=== PATIENT | female | born 1960 | race Caucasian/White ===

== ENCOUNTER → 2023-12-02 17:13 | Outpatient (REF) | payer OTHER, SELFPAY | LOC: HWRAD 17:13 | PROVIDERS: ATTENDING PHYSICIAN Physician Assistant Medical | DX: R07.89 Other chest pain (principal) | CPT/HCPCS: 71046 ==

== ENCOUNTER → 2023-12-08 15:18 | Outpatient (REF) | payer OTHER, SELFPAY | LOC: HWWDC 15:18 | PROVIDERS: ATTENDING PHYSICIAN Physician Assistant Medical | DX: Z12.31 Encounter for screening mammogram for malignant neoplasm of breast (principal) | CPT/HCPCS: 77063; 77067 ==

== ENCOUNTER 2023-12-18 07:51 | Inpatient (IN) | payer OTHER, SELFPAY ==
[2023-12-15 19:07] VITALS: BP 106/64
[2023-12-15 19:23] LABS: % Basophils 0.3 % (0-2); % Eosinophils 0.3 % (0-6); % Immature Granulocytes 0.5 % (0-0.5); % Lymphocytes 12.7 % (20.5-51.1); % Monocytes 7.3 % (1.7-9.3); % Neutrophils 78.9 % (42.2-75.2); Absolute Immature Granulocytes 0.1 10^3/uL (0-0.05); Absolute Lymphocytes 1.6 10^3/uL (1.2-3.4); Absolute Monocytes 0.9 10^3/uL (0.1-0.6); Absolute Neutrophils 9.8 10^3/uL (1.4-6.5); Hematocrit 39.8 % (37.0-47.0); Hemoglobin 13.3 g/dL (12.0-16.0); Mean Corp Hgb Conc. 33.4 g/dL (33.0-37.0); Mean Corpuscular Hgb 28.4 pg (27.0-31.0); Mean Corpuscular Volume 84.9 fL (81.0-99.0); Nucleated Red Blood Cells % 0 %; Platelet Count 427 10^3/uL (130-400); Red Blood Cell Count 4.69 10^6/uL (4.20-5.40); Red Cell Dist. Width 12.2 % (11.5-14.5); White Blood Cell Count 12.4 10^3/uL (4.8-10.8)
[2023-12-15 19:40] LABS: ALT (SGPT) 21 U/L (0-35); AST (SGOT) 22 U/L (14-36); Albumin 4.3 g/dl (3.5-5.0); Alkaline Phosphatase 94 U/L (38-126); Blood Urea Nitrogen 19 mg/dl (7-17); Calcium 9.5 mg/dl (8.4-10.2); Carbon Dioxide 24 mmol/L (22-30); Glucose 164 mg/dl (70-99); Lipase 68 U/L (23-300); Total Bilirubin 0.9 mg/dl (0.2-1.3); Total Protein 6.9 g/dl (6.3-8.2); eGFR > 60.00
[2023-12-15 19:49] LABS: Chloride 104 mmol/L (98-107); Potassium 3.8 mmol/L (3.5-5.1); Sodium 138 mmol/L (135-145)
--- NOTE | 2023-12-15 21:58 | ED.GENMED ---
History of Present Illness
General
Chief Complaint: Abdominal Symptoms
Source: patient
Time Seen by Provider: 12/15/23 21:43
History of Present Illness
History of Present Illness:
63yoF with a history of hyperlipidemia and GERD presenting with her for evaluation of left flank pain. She initially was seen by her PCP 10 days for concern for high blood pressure and chest pain. An EKG and CXR were done which were
reportedly normal. She was prescribed anxiety medications for her symptoms. She went out to eat with her friends 1 week ago and she felt like her food 'did not digest right.' She was at a [facility] of [facility] 4 days ago and started having L flank pain
afterwards. She was seen by her PCP 3 days ago again and she was prescribed a Z-pack for a possible infection. She continues to have severe L flank pain which she rates as a 10/10 in severity. She also endorses fevers up to 100.7. She denies any
vomiting, diarrhea, dysuria, rashes, cough.
Past History
Past History
ED Past Medical History: Other (Paaget's disease, melanoma)
Social History
Tobacco: Non-smoker
Phy Exam
Physical Exam
Physical Exam:
Patient appears uncomfortable
General Physical Exam
General Presentation: moderate distress
General age: appears stated age
General Skin: warm and dry
General Habitus: normal
General Mental: alert
General Hydration: appears well hydrated
Cardiovascular Exam
Cardiovascular Exam: regular rate/rhythm and no murmur
Pulmonary Exam
Pulmonary Exam: lungs clear, no respiratory distress, no crackles and no wheezing
Gastrointestinal Exam
Gastrointestinal Exam: non tender, soft, non distended and no cva tenderness
Musculoskeletal Exam
Musculoskeletal Exam: other (No rash or skin changes to L flank. No reproducible tenderness. )
Course
Orders/Labs/Results
Orders:
Orders
12/15/23 19:17
CMP [Comprehensive Metabolic Panel] Urgent
Complete Blood Count/With Diff Urgent
Lipase Urgent
12/15/23 21:56
Chest/Abd/Pelvis w Contrast CT [CT Chest/abd/pel W Iv Cont] Urgent
Comment:
Reason For Exam: L flank pain, SOB, fever
0.9% Sodium Chloride 1000 ml [Nss] 1,000 ml IV BOLUS
HYDROmorphone [Dilaudid] 0.5 mg IV NOW STA
12/15/23 21:57
Electrocardiogram (*1) Urgent
Reason for Study: Chest Pain
EKG- Treatment ONCE
12/15/23 22:24
Troponin I Urgent
Urinalysis Reflex To Culture Urgent
Date Specimen was Collected: 12/15/23
Time Specimen was Collected: 22:14
Urine Microscopic Reflex Cult Urgent
Urine Culture Urgent
JERI Source: U
Specimen Description:
Date Specimen was Collected: 12/15/23
Time Specimen was Collected: 22:14
12/15/23 22:27
Ondansetron Injectable [Zofran] 4 mg .ROUTE .STK-MED ONE
12/15/23 22:28
Ondansetron Injectable [Zofran] 4 mg IV NOW STA
12/16/23 00:42
HYDROmorphone [Dilaudid] 0.5 mg IV NOW STA
Abnormal Lab Results
12/15/23 12/15/23
19:17 22:24
WBC 12.4 H 10^3/uL
(4.8-10.8)
Plt Count 427 H 10^3/uL
(130-400)
Abs Immat Gran (auto) 0.1 H 10^3/uL
(0-0.05)
Absolute Neuts (auto) 9.8 H 10^3/uL
(1.4-6.5)
Absolute Monos (auto) 0.9 H 10^3/uL
(0.1-0.6)
Neutrophils % 78.9 H %
(42.2-75.2)
Lymphocytes % 12.7 L %
(20.5-51.1)
BUN 19 H mg/dl
(7-17)
Glucose 164 H mg/dl
(70-99)
Urine Ketones Trace A
(Negative)
Ur Occult Blood Reflex 2+ A
(Negative)
Urine Bilirubin 1+ A
(Negative)
Urine RBC 3-6 A /HPF
(0-2)
Urine Bacteria (Reflex) Moderate A
(Negative)
12/15/23 19:17
12/15/23 19:17
Vital Signs
Initial and Last Documented VS:
Initial Vital Signs
Temp Pulse Resp BP Pulse Ox
99.2 F 86 22 106/64 100
12/15/23 19:07 12/15/23 19:07 12/15/23 19:07 12/15/23 19:07 12/15/23 19:07
Last Documented Vital Signs
Temp Pulse Resp BP Pulse Ox
99.2 F 109 18 118/63 93
12/15/23 19:07 12/15/23 22:33 12/15/23 22:33 12/15/23 22:33 12/15/23 22:33
MDM/Problems Addressed
Differential Diagnosis Includes:
63yoF here with L flank pain x 4 days. Also having low grade fevers up to 100.7 and digestive issues. Currently on a Zpack prescribed by her PCP. She is afebrile and hemodynamically stable. She appears uncomfortable on exam but is non-toxic. No
reproducible tenderness to L flank or skin changes. Differential diagnosis includes but is not limited to: musculoskeletal, kidney stone, pneumonia, pneumothorax, ACS
Initial ED plan: Check cardiac labs, UA, EKG, and CT CAP. IV Dilaudid and fluid bolus for symptoms.
*EKG
Interpreted by ED Provider?: Yes
EKG Intrepretation Date: 12/16/23
Heart Rate: 105
Rate: tachycardiac
Rhythm: sinus
Buckholts: normal axis
Interval: normal interval
QRS Pattern: normal QRS
Ischemia: no ischemia
*Critical Care Note
Total Time (30-74mins, 75-104mins- exclusive of procedures): Not Applicable
Update Note
Update Note:
Labs reveal a WBC of 12.4. Moderate bacteria on UA although she denies any urinary symptoms. CT shows a small to moderate pericardial effusion. No ischemic changes on EKG and troponin is normal. Patient requiring multiple doses of IV Dilaudid for
pain control. She was admitted for further management.
ED Attending Note
-
Portions of this chart may have been created with voice recognition software.� Occasional wrong word or��sound alike� substitutions may have occurred due to the inherent limitations of voice recognition software.
Discharge Plan
Departure
Patient Disposition: Admit
Date of Disposition: 12/16/23
Time of Disposition: 00:46
Presentation/result/management discussed w/ accepting MD/DO: Hospitalist
Discharge Problem:
Pericardial effusion, Left flank pain
Prescriptions:
No Action
meloxicam 15 MG tablet
15 mg PO DAILY PRN (Reason: headache)
tramadol 50 MG tablet
50 mg PO DAILY PRN (Reason: pain)
zoledronic acid 4 MG/5 ML solution
4 mg IV .YEARLY
L.acidoph, paracasei,B. lactis 1 EACH capsule
1 ea PO DAILY
meclizine 25 MG tablet
25 mg PO TID PRN (Reason: nausea or vertigo) Qty: 20 0RF
amoxicillin-pot clavulanate 875-125 mg tablet
1 tab PO BID Qty: 14 0RF
Referrals:
Verito Brizuela PA [Family Provider] -
Interventions
Interventions:
*Risk Screen - Suicide Last Done: 12/15/23 19:07
*General Assessment Last Done: 12/15/23 22:32
*Neglect/Abuse Screening Last Done: 12/15/23 19:07
ED- Fall Risk Assessment Last Done: 12/15/23 22:34
*ED COVID-19 Vaccine History Last Done: 12/15/23 22:32
CG-Lbnzkl-Abccddygkk Assessment Last Done: 12/15/23 22:34
Discharge Date and Time
Print Language: HUNGARIAN
[2023-12-15] MEDS: ZOFRAN 4 MG IV (22:28)
[2023-12-15] MEDS: DILAUDID 0.5 MG IV (22:29)
[2023-12-15] MEDS: NSS 1000 IV (22:29)
[2023-12-15 22:31] VITALS: BP 118/63; BMI 30.7
[2023-12-15 22:32] LABS: Urine Albumin Trace (Neg - Trace); Urine Bilirubin 1+ (Negative); Urine Character Clear (Clear); Urine Color Yellow; Urine Glucose Negative (Negative); Urine Ketone Trace (Negative); Urine Leukocyte Negative (Negative); Urine Nitrite Negative (Negative); Urine Occult Blood 2+ (Negative); Urine Specific Gravity 1.025 (<1.030); Urine Urobilinogen Negative (Neg - 1+)
[2023-12-15 22:33] VITALS: BP 118/63
[2023-12-15 22:49] LABS: Urine Mucus Moderate
[2023-12-15 22:50] LABS: Urine Bacteria Moderate (Negative); Urine White Cell 0-2 /HPF (0-5)
[2023-12-15 22:57] LABS: Troponin I < 0.012 ng/ml
[2023-12-16] MEDS: DILAUDID 0.5 MG IV (01:05)
[2023-12-16] MEDS: ZOFRAN 4 MG IV (01:10)
--- NOTE | 2023-12-16 01:57 | HPS.HSE ---
Family Physician
-
Family Physician: Verito Brizuela
Chief Complaint
-
Rt flank pain
History of Present Illness
63F HX GERD, HLD came to ER with for evaluation of left flank pain amd multple compalints .
- 10 days ago , seen by PCP for concern for high blood pressure and chest pain.
Reports unremarkable EKG and CXR
Then DC'd on anxiety medications
- 7 days ago she went out and eat dinner with friend and she felt like her food 'did not digest right.'
- 4 days ago and started having L flank pain afterwards.
- 3 days ago, seen by PCP again prescribed a Z-pack for a possible infection.
Reports she continues to have severe L flank pain
- rates as a 10/10 in severity.
- report s fevers up to 100.7
- vomiting, diarrhea, dysuria, rashes, cough.
Medical History
Past Medical History
Past Medical History: Reports Other (Paaget's disease, melanoma))
Past Surgical History: Reports None
Social History
Tobacco: Non-smoker
Family History
Family History: Not pertinent
Allergies / Home Medications
Allergies reflects when Allergies were last updated in [facility].
Home Medications with original date entered in [facility]
Allergy/Medication List:
Allergies
Allergy/AdvReac Type Severity Reaction Status Date / Time
No Known Allergies Allergy Verified 12/15/23 19:11
Home Medications
L.acidoph, paracasei,B. lactis 10 billion cell capsule 1 ea PO DAILY 02/19/19
meclizine 25 mg tablet 25 mg PO TID PRN nausea or vertigo #20 tabs 02/19/19
meloxicam 15 mg tablet 15 mg PO DAILY PRN headache 02/19/19
tramadol 50 mg tablet 50 mg PO DAILY PRN pain 02/19/19
zoledronic acid 4 mg/5 mL intravenous solution 4 mg IV .YEARLY 02/19/19
amoxicillin 875 mg-potassium clavulanate 125 mg tablet 1 tab PO BID #14 tabs 03/01/23
Review of Systems
-
Constitutional: Reports No Symptoms
EENT: Reports No Symptoms
Respiratory: Reports No Symptoms
Cardiac: Reports No Symptoms
Abdomen/GI: Reports Abdominal Pain
: Reports No Symptoms
Musculoskeletal: Reports No Symptoms
Skin: Reports No Symptoms
Neurological: Reports No Symptoms
Endocrine: Reports No Symptoms
Hematologic/Lymphatic: Reports No Symptoms
Psych: Reports No Symptoms
Physical Exam
Vital Signs
Vital Signs
Temp Pulse Resp BP Pulse Ox
99.2 F 109 18 118/63 93
12/15/23 19:07 12/15/23 22:33 12/15/23 22:33 12/15/23 22:33 12/15/23 22:33
Physical Exam
General: Well Developed, Well Nourished and No Apparent Distress
HEENT: NormoCephalic, Moist mucous membranes and Atraumatic
Respiratory: Clear
Cardiac: S1/S2 and Regular Rhythm; No Murmur or Rub
GI: Soft, Non Tender, Non Distended and Normal Bowel Sounds; No Organomegaly
Rectal: Deferred by Provider
Musculoskeletal: No Clubbing, No Cyanosis and No Edema
Skin: No Rash
Neuro: Nonfocal/grossly intact
Laboratory Results
-
12/15/23 19:17
12/15/23 19:17
Laboratory Results
Total Bilirubin 0.9 mg/dl (0.2-1.3) 12/15/23 19:17
AST 22 U/L (14-36) 12/15/23 19:17
ALT 21 U/L (0-35) 12/15/23 19:17
Alkaline Phosphatase 94 U/L (38-126) 12/15/23 19:17
Troponin I < 0.012 ng/ml 12/15/23 22:24
Lipase 68 U/L (23-300) 12/15/23 19:17
Data Reviewed
-
Diagnostic Radiology: Discussed with Physician
Lab Data: Labs Reviewed by me
Impression/Plan
-
Reviewed VS: T 99.2 HR 85- 110 BP 105/65 - 118/63
Data
WCC 12.4
PLt 427
Unremarkable CMP
NEG TPNI
UA with moderate bacteria - she denies any urinary symptoms.
NO PRIOR hospitalist admission:
ASSESSMENT & PLAN
Pending Rx reconciliation
Intermittent severe L flank pain of unclear origin
- report inadequate pain control with IV Dilaudid 5.5 2 mg
- report s fevers up to 100.7
- No vomiting, diarrhea
- hemodynamically stable.
- WBC 12.4.
- UA with moderate bacteria but she denies any urinary symptoms.
- CT CAP shows a small to moderate pericardial effusion.
- had IV Dilaudid 0.5 x 2
- hold off further IV Narcotics
- IVF
- Observe
DVT Px: SQH
Code: Full code
Obs MS
[2023-12-16 02:00] VITALS: BP 110/60
[2023-12-16 03:37] VITALS: BMI 31.8
[2023-12-16] MEDS: NSS 1000 IV ×3 (03:40→23:34)
[2023-12-16] MEDS: TYLENOL 650 MG PO (03:42)
[2023-12-16 03:43] VITALS: BP 137/88
[2023-12-16 07:39] VITALS: BP 117/84
[2023-12-16 08:00] LABS: % Basophils 0.1 % (0-2); % Immature Granulocytes 0.6 % (0-0.5); % Lymphocytes 4.7 % (20.5-51.1); % Monocytes 7.9 % (1.7-9.3); % Neutrophils 86.7 % (42.2-75.2); Absolute Immature Granulocytes 0.1 10^3/uL (0-0.05); Absolute Lymphocytes 0.9 10^3/uL (1.2-3.4); Absolute Monocytes 1.5 10^3/uL (0.1-0.6); Absolute Neutrophils 16.5 10^3/uL (1.4-6.5); Hematocrit 37.9 % (37.0-47.0); Hemoglobin 12.7 g/dL (12.0-16.0); Mean Corp Hgb Conc. 33.5 g/dL (33.0-37.0); Mean Corpuscular Hgb 29.1 pg (27.0-31.0); Mean Corpuscular Volume 86.7 fL (81.0-99.0); Mean Platelet Volume 9.3 fL (7.4-10.4); Nucleated Red Blood Cells % 0 %; Platelet Count 411 10^3/uL (130-400); Red Blood Cell Count 4.37 10^6/uL (4.20-5.40); Red Cell Dist. Width 12.5 % (11.5-14.5)
[2023-12-16] MEDS: HEPARIN 5000 UNITS SC ×2 (08:01→20:30)
[2023-12-16 08:25] LABS: Blood Urea Nitrogen 21 mg/dl (7-17); Carbon Dioxide 18 mmol/L (22-30); Chloride 106 mmol/L (98-107); Estimated Creatinine Clearance 107 ml/min; Glucose 183 mg/dl (70-99); Potassium 4.5 mmol/L (3.5-5.1); Sodium 137 mmol/L (135-145); eGFR > 60.00
[2023-12-16 13:48] LABS: Procalcitonin 0.33 ng/ml (0.0-0.25)
[2023-12-16] MEDS: STERILE WATER FOR INJECTION 10 ML IV (14:11)
[2023-12-16] MEDS: ROCEPHIN 1000 MG IV (14:11)
[2023-12-16 15:35] VITALS: BP 128/88
--- NOTE | 2023-12-16 16:25 | W.PN.HOSP.TC ---
Today's Communication/Plan
-
see plan
Assessment / Plan
Assessment / Plan
Impression:
Presentation with persistent left lower back/flank pain
Left lower lobe pneumonia with pleurisy.
Leukocytosis due to the above.
Mild normal gap metabolic acidosis suspect secondary to dehydration
Plan:
Presents with persistent left lower back/flank pain 4 days.
She has no respiratory symptoms other than severe pain on inspiration in the left flank.
Urinalysis not indicative of infection or acute process. Pending urine culture
Imaging with CT scan of the chest abdomen pelvis relevant with left lower lobe process/consolidation likely pneumonia.
Mildly elevated procalcitonin level
WBC increased to 19 K.
She has been treated with oral antibiotics prior to presentation with no significant improvement of pain
Start IV antibiotics ceftriaxone/doxycycline
Incentive spirometry
Analgesia.
Mucolytic's.
Monitor closely, may require reimaging including chest ultrasound to monitor for accumulating pleural effusion/empyema.
Provide IV fluids monitoring oral intake
Follow BMP.
Anticipated Discharge: 24 - 48 hours
Subjective/Interval History
-
Date of Service: December 16, 2023
Objective Data
-
Labs:
Laboratory Results
12/16/23
07:34
WBC 19.0 H
Hgb 12.7
Hct 37.9
Plt Count 411 H
Sodium 137
Potassium 4.5
Chloride 106
Carbon Dioxide 18 L
BUN 21 H
Creatinine 0.6
Glucose 183 H
Calcium 9.0
Vital Signs:
Vital Signs
Temp Pulse Resp BP Pulse Ox
97.9 F 109 19 128/88 96
12/16/23 15:35 12/16/23 15:35 12/16/23 15:35 12/16/23 15:35 12/16/23 15:35
Physical Exam
-
General: Well Developed and No Apparent Distress
HEENT: Normocephalic, Atraumatic and Moist Mucous Membranes
Respiratory: Clear to Auscultation
Cardiac: Regular Rhythm and S1/S2; Negative Murmur, Rub or Gallop
GI: Soft, Nontender, Nondistended and Normal Bowel Sounds; Negative Organomegaly
Rectal: Deferred by Provider
Musculoskeletal: No Clubbing, No Cyanosis and No Edema
Skin: Negative Rash
Neuro: Nonfocal/Grossly Intact
[2023-12-16] MEDS: VIBRAMYCIN 100 MG PO (20:31)
[2023-12-16] MEDS: MUCINEX 600 MG PO (20:31)
[2023-12-16 23:09] VITALS: BP 109/81
[2023-12-17] MEDS: TYLENOL 650 MG PO ×3 (00:35→19:58)
[2023-12-17 07:04] LABS: % Basophils 0.2 % (0-2); % Immature Granulocytes 0.7 % (0-0.5); % Lymphocytes 13.9 % (20.5-51.1); % Monocytes 9.7 % (1.7-9.3); % Neutrophils 75.5 % (42.2-75.2); Absolute Immature Granulocytes 0.1 10^3/uL (0-0.05); Absolute Lymphocytes 1.7 10^3/uL (1.2-3.4); Absolute Monocytes 1.2 10^3/uL (0.1-0.6); Absolute Neutrophils 9.1 10^3/uL (1.4-6.5); Hematocrit 34.5 % (37.0-47.0); Hemoglobin 11.2 g/dL (12.0-16.0); Mean Corp Hgb Conc. 32.5 g/dL (33.0-37.0); Mean Corpuscular Hgb 28.2 pg (27.0-31.0); Mean Corpuscular Volume 86.9 fL (81.0-99.0); Mean Platelet Volume 9.6 fL (7.4-10.4); Nucleated Red Blood Cells % 0 %; Platelet Count 349 10^3/uL (130-400); Red Blood Cell Count 3.97 10^6/uL (4.20-5.40); Red Cell Dist. Width 12.7 % (11.5-14.5); White Blood Cell Count 12.1 10^3/uL (4.8-10.8)
[2023-12-17 07:36] VITALS: BP 127/78
[2023-12-17] MEDS: HEPARIN 5000 UNITS SC ×2 (07:50→19:46)
[2023-12-17] MEDS: VIBRAMYCIN 100 MG PO ×2 (07:51→19:46)
[2023-12-17] MEDS: MUCINEX 600 MG PO ×2 (07:51→19:46)
[2023-12-17 08:25] LABS: Blood Urea Nitrogen 10 mg/dl (7-17); Carbon Dioxide 26 mmol/L (22-30); Chloride 107 mmol/L (98-107); Estimated Creatinine Clearance 91 ml/min; Glucose 131 mg/dl (70-99); Potassium 3.9 mmol/L (3.5-5.1); Sodium 140 mmol/L (135-145); eGFR > 60.00
[2023-12-17] MEDS: NSS 1000 IV (09:14)
--- NOTE | 2023-12-17 09:16 | PTOTSP ---
Speech Language Pathology
Pt seen for clinical bedside swallow evaluation. Pt reported she follows with GI. She was noting reflux and globus sensation in esophagus and regurgitation, but reported this has been well controlled for the past year. Last endoscopy in August of
this year with the following findings: esophagitis with concern for EOE, Schatzki's ring, small hiatal hernia. Pt denied any oropharyngeal dysphagia.
P.O. trials of puree, regular solids, and thin liquids provided. Adequate mastication, bolus formation, and A-P transit noted with no oral residue. No overt signs of aspiration.
Recommend:
(1) Regular solids/thin liquids
(2) General aspiration precautions
(3) Meds as tolerated
(4) LABOR STANDARDS DIRECTOR to sign off. Please reconsult as indicated.
[2023-12-17] MEDS: ROCEPHIN 1000 MG IV (13:03)
[2023-12-17] MEDS: STERILE WATER FOR INJECTION 10 ML IV (13:03)
[2023-12-17 16:08] VITALS: BP 139/81
--- NOTE | 2023-12-17 17:50 | W.PN.HOSP.TC ---
Today's Communication/Plan
-
Antibiotics, incentive spirometry
Pain control
Assessment / Plan
Assessment / Plan
Impression:
Presentation with persistent left lower back/flank pain
Left lower lobe pneumonia with pleurisy.
Leukocytosis due to the above.
Mild normal gap metabolic acidosis suspect secondary to dehydration
Plan:
Presents with persistent left lower back/flank pain 4 days.
She has no respiratory symptoms other than severe pain on inspiration in the left flank.
Urinalysis not indicative of infection or acute process. Pending urine culture
Imaging with CT scan of the chest abdomen pelvis relevant with left lower lobe process/consolidation likely pneumonia.
Mildly elevated procalcitonin level
Initiated on antibiotics: Ceftriaxone/doxycycline to cover community-acquired pathogens.
Overall improved with improved cough and left flank/lower back pain.
WBC trending down 19-12
Blood cultures negative to date
Incentive spirometry
Analgesia.
Mucolytic's.
Monitor closely, may require reimaging including chest ultrasound to monitor for accumulating pleural effusion/empyema.
Provide IV fluids monitoring oral intake
Follow BMP.
Anticipated Discharge: 24 - 48 hours
Subjective/Interval History
-
Date of Service: December 17, 2023
Objective Data
-
Labs:
Laboratory Results
12/17/23
06:12
WBC 12.1 H
Hgb 11.2 L
Hct 34.5 L
Plt Count 349
Sodium 140
Potassium 3.9
Chloride 107
Carbon Dioxide 26
BUN 10
Creatinine 0.7
Glucose 131 H
Calcium 9.0
Vital Signs:
Vital Signs
Temp Pulse Resp BP Pulse Ox
99.0 F 106 18 139/81 94
12/17/23 16:08 12/17/23 16:08 12/17/23 16:08 12/17/23 16:08 12/17/23 16:08
I&O
12/16/23 12/17/23 12/18/23
06:59 06:59 06:59
Intake Total 840 / 840 841 / 841
Balance 840 / 840 841 / 841
Physical Exam
-
General: Well Developed and No Apparent Distress
HEENT: Normocephalic, Atraumatic and Moist Mucous Membranes
Respiratory: Clear to Auscultation
Cardiac: Regular Rhythm and S1/S2; Negative Murmur, Rub or Gallop
GI: Soft, Nontender, Nondistended and Normal Bowel Sounds; Negative Organomegaly
Rectal: Deferred by Provider
Musculoskeletal: No Clubbing, No Cyanosis and No Edema
Skin: Negative Rash
Neuro: Nonfocal/Grossly Intact
[2023-12-17 23:00] VITALS: BP 116/70
[2023-12-18] MEDS: TYLENOL 650 MG PO ×3 (02:03→21:10)
[2023-12-18] MEDS: HEPARIN SC ×4 (08:02→20:33)
[2023-12-18] MEDS: VIBRAMYCIN 100 MG PO ×2 (08:02→20:30)
[2023-12-18] MEDS: MUCINEX 600 MG PO ×2 (08:02→20:30)
[2023-12-18 08:04] VITALS: BP 131/71
--- NOTE | 2023-12-18 12:43 | CM ---
Patient has switched to inpatient, IMM given. rn field case manager reviewed patient's chart and met with patient and patient lives with spouse in a 2 story home, patient is independent with adl's and ambulation, no dme, patient drives.
Pharmacy; [facility]
PCP: Dr. Verito Brizuela
Plan; Home no needs
[2023-12-18] MEDS: STERILE WATER FOR INJECTION 10 ML IV (13:10)
[2023-12-18] MEDS: ROCEPHIN 1000 MG IV (13:10)
[2023-12-18 15:00] VITALS: BP 130/75
[2023-12-18 15:55] LABS: % Basophils 0.5 % (0-2); % Eosinophils 0.2 % (0-6); % Immature Granulocytes 0.6 % (0-0.5); % Lymphocytes 14.1 % (20.5-51.1); % Monocytes 5.4 % (1.7-9.3); % Neutrophils 79.2 % (42.2-75.2); Absolute Basophils 0.1 10^3/uL (0-0.2); Absolute Immature Granulocytes 0.1 10^3/uL (0-0.05); Absolute Lymphocytes 1.3 10^3/uL (1.2-3.4); Absolute Monocytes 0.5 10^3/uL (0.1-0.6); Absolute Neutrophils 7.4 10^3/uL (1.4-6.5); Hematocrit 33.6 % (37.0-47.0); Hemoglobin 11.1 g/dL (12.0-16.0); Mean Corpuscular Hgb 28.2 pg (27.0-31.0); Mean Corpuscular Volume 85.5 fL (81.0-99.0); Nucleated Red Blood Cells % 0 %; Platelet Count 356 10^3/uL (130-400); Red Blood Cell Count 3.93 10^6/uL (4.20-5.40); Red Cell Dist. Width 12.7 % (11.5-14.5); White Blood Cell Count 9.4 10^3/uL (4.8-10.8)
--- NOTE | 2023-12-18 19:05 | W.PN.HOSP.TC ---
Today's Communication/Plan
-
Significant improvement with mild cough, improvement of left pleuritic chest pain
Continue IV antibiotics for another 24 hours
Continue incentive spirometer
Follow WBC.
Assessment / Plan
Assessment / Plan
Impression:
Presentation with persistent left lower back/flank pain
Left lower lobe pneumonia with pleurisy.
Leukocytosis due to the above.
Mild normal gap metabolic acidosis suspect secondary to dehydration
Plan:
Presents with persistent left lower back/flank pain 4 days.
She has no respiratory symptoms other than severe pain on inspiration in the left flank.
Urinalysis not indicative of infection or acute process. Pending urine culture
Imaging with CT scan of the chest abdomen pelvis relevant with left lower lobe process/consolidation likely pneumonia.
Mildly elevated procalcitonin level
Initiated on antibiotics: Ceftriaxone/doxycycline to cover community-acquired pathogens.
Overall improved with improved cough and left flank/lower back pain.
WBC trending down 19-12
Blood cultures negative to date
Incentive spirometry
Analgesia.
Mucolytic's.
Monitor closely, may require reimaging including chest ultrasound to monitor for accumulating pleural effusion/empyema.
Provide IV fluids monitoring oral intake
Follow BMP.
Anticipated Discharge: 24 - 48 hours
Subjective/Interval History
-
Date of Service: December 18, 2023
Objective Data
-
Labs:
Laboratory Results
12/18/23
15:43
WBC 9.4
Hgb 11.1 L
Hct 33.6 L
Plt Count 356
Vital Signs:
Vital Signs
Temp Pulse Resp BP Pulse Ox
98.2 F 95 18 130/75 95
12/18/23 15:00 12/18/23 15:00 12/18/23 15:00 12/18/23 15:00 12/18/23 15:00
I&O
12/17/23 12/18/23 12/19/23
06:59 06:59 06:59
Intake Total 840 / 840 1441 / 1441 420 / 420
Balance 840 / 840 1441 / 1441 420 / 420
Physical Exam
-
General: Well Developed and No Apparent Distress
HEENT: Normocephalic, Atraumatic and Moist Mucous Membranes
Respiratory: Clear to Auscultation
Cardiac: Regular Rhythm and S1/S2; Negative Murmur, Rub or Gallop
GI: Soft, Nontender, Nondistended and Normal Bowel Sounds; Negative Organomegaly
Rectal: Deferred by Provider
Musculoskeletal: No Clubbing, No Cyanosis and No Edema
Skin: Negative Rash
Neuro: Nonfocal/Grossly Intact
[2023-12-18] MEDS: ROBITUSSIN DM 5 ML PO (21:10)
[2023-12-18 23:00] VITALS: BP 129/89
[2023-12-18 23:44] VITALS: BP 129/89
[2023-12-19] MEDS: ROBITUSSIN DM 5 ML PO ×2 (04:38→10:25)
[2023-12-19] MEDS: TYLENOL 650 MG PO ×2 (04:38→08:59)
[2023-12-19 07:00] VITALS: BP 146/90
[2023-12-19 07:03] LABS: % Basophils 0.6 % (0-2); % Eosinophils 1.4 % (0-6); % Immature Granulocytes 0.6 % (0-0.5); % Lymphocytes 15.5 % (20.5-51.1); % Monocytes 8.3 % (1.7-9.3); % Neutrophils 73.6 % (42.2-75.2); Absolute Basophils 0.1 10^3/uL (0-0.2); Absolute Eosinophils 0.1 10^3/uL (0-0.7); Absolute Immature Granulocytes 0.1 10^3/uL (0-0.05); Absolute Lymphocytes 1.3 10^3/uL (1.2-3.4); Absolute Monocytes 0.7 10^3/uL (0.1-0.6); Hematocrit 30.9 % (37.0-47.0); Hemoglobin 10.4 g/dL (12.0-16.0); Mean Corp Hgb Conc. 33.7 g/dL (33.0-37.0); Mean Corpuscular Hgb 28.4 pg (27.0-31.0); Mean Corpuscular Volume 84.4 fL (81.0-99.0); Mean Platelet Volume 9.5 fL (7.4-10.4); Nucleated Red Blood Cells % 0 %; Platelet Count 352 10^3/uL (130-400); Red Blood Cell Count 3.66 10^6/uL (4.20-5.40); Red Cell Dist. Width 12.5 % (11.5-14.5); White Blood Cell Count 8.1 10^3/uL (4.8-10.8)
[2023-12-19] MEDS: MUCINEX 600 MG PO (08:59)
[2023-12-19] MEDS: VIBRAMYCIN 100 MG PO (08:59)
[2023-12-19] MEDS: HEPARIN 5000 UNITS SC (09:00)
[2023-12-19] MEDS: PROTONIX 40 MG PO (12:03)
--- NOTE | 2023-12-19 14:11 | CM ---
Chart reviewed, home no needs when stable.
Plan; Home no needs when stable.
--- NOTE | 2023-12-19 14:53 | W.DS.TRANS ---
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
-
Discharge Instructions:
Discharge Diagnosis/Procedures Left lower lobe pneumonia
Diet Regular
Others Tests CT scan of the chest to follow with left lower
lobe pneumonia
Instructions:
Stand-Alone Forms:
Changes to Home Medications: Yes
Discharge Medications:
DC Medications w/original date entered in [facility]
L.acidoph, paracasei,B. lactis 10 billion cell capsule 1 ea PO DAILY 02/19/19
meclizine 25 mg tablet 25 mg PO TID PRN nausea or vertigo #20 tabs 02/19/19
meloxicam 15 mg tablet 15 mg PO DAILY PRN headache 02/19/19
tramadol 50 mg tablet 50 mg PO DAILY PRN pain 02/19/19
zoledronic acid 4 mg/5 mL intravenous solution 4 mg IV .YEARLY 02/19/19
acetaminophen 325 mg tablet 650 mg (2 x 325 mg) PO Q4HPRN PRN mild pain/REYES/temp> 100.4F #30 tabs 12/19/23
cefuroxime axetil 500 mg tablet 500 mg PO BID #10 tabs 12/19/23
dextromethorphan-guaifenesin 10 mg-100 mg/5 mL oral syrup 5 ml PO Q6HPRN PRN cough #237 mL 12/19/23
doxycycline hyclate 100 mg capsule 100 mg PO Q12 #10 caps 12/19/23
guaifenesin 600 mg tablet, extended release 12 hr 600 mg PO Q12 #30 tabs 12/19/23
omeprazole magnesium 20 mg tablet,delayed release (Prilosec OTC) 20 mg PO DAILY 12/19/23
Home Medication Changes
Antibiotics
Pending Results: No
[2023-12-19 15:00] VITALS: BP 136/88
[2023-12-19] MEDS: STERILE WATER FOR INJECTION 10 ML IV (15:23)
[2023-12-19] MEDS: ROCEPHIN 1000 MG IV (15:24)
== END 2023-12-19 16:42 | disposition home or self-care (01) | DRG 194 ==
LOC: 4 WEST ACU 07:51
PROVIDERS: Physician Assistant; ADMITTING PHYSICIAN Internal Medicine; ATTENDING PHYSICIAN Internal Medicine; EMERGENCY PHYSICIAN Student in an Organized Health Care Education/Training Program; FAMILY PHYSICIAN Physician Assistant Medical
DX: J18.9 Pneumonia, unspecified organism (principal); E87.20 Acidosis, unspecified; E86.0 Dehydration
CPT/HCPCS: 71260; 74177; 80048; 80053; 81003; 81015; 83690; 84145; 84484; 85025; 87040; 87086; 92610; 93005; 99285; Q9967

== ENCOUNTER → 2024-01-22 10:42 | Outpatient (REF) | payer OTHER, SELFPAY | LOC: HWRAD 10:42 | PROVIDERS: ATTENDING PHYSICIAN Physician Assistant Medical | DX: J18.9 Pneumonia, unspecified organism (principal) | CPT/HCPCS: 71260; Q9967 ==

== ENCOUNTER → 2024-01-27 11:15 | Outpatient (REF) | payer OTHER, SELFPAY | LOC: RAD 11:15 | PROVIDERS: ATTENDING PHYSICIAN Internal Medicine Rheumatology; FAMILY PHYSICIAN Physician Assistant Medical | DX: M17.0 Bilateral primary osteoarthritis of knee (principal); M81.0 Age-related osteoporosis without current pathological fracture; M85.89 Other specified disorders of bone density and structure, multiple sites; M88.0 Osteitis deformans of skull | CPT/HCPCS: 78306; A9503 ==

== ENCOUNTER → 2024-02-17 14:53 | Outpatient (REF) | payer OTHER, SELFPAY | LOC: HWRAD 14:53 | PROVIDERS: ATTENDING PHYSICIAN Physician Assistant Medical | DX: R16.1 Splenomegaly, not elsewhere classified (principal) | CPT/HCPCS: 76705 ==

== ENCOUNTER → 2024-06-24 13:05 | Outpatient (REF) | payer OTHER, SELFPAY | LOC: HWRAD 13:05 | PROVIDERS: ATTENDING PHYSICIAN Internal Medicine Rheumatology; FAMILY PHYSICIAN Physician Assistant Medical | DX: M17.0 Bilateral primary osteoarthritis of knee (principal); M81.0 Age-related osteoporosis without current pathological fracture; M85.89 Other specified disorders of bone density and structure, multiple sites | CPT/HCPCS: 77080 ==

== ENCOUNTER → 2024-11-16 10:11 | Outpatient (REF) | payer OTHER, SELFPAY | LOC: WDC 10:11 | PROVIDERS: ATTENDING PHYSICIAN Obstetrics & Gynecology; FAMILY PHYSICIAN Physician Assistant Medical | DX: N64.4 Mastodynia (principal) | CPT/HCPCS: 76642; 77062; 77066 ==

== ENCOUNTER → 2025-01-25 12:33 | Outpatient (REF) | payer OTHER, SELFPAY | LOC: HWRAD 12:33 | PROVIDERS: ATTENDING PHYSICIAN Nurse Practitioner Family; FAMILY PHYSICIAN Physician Assistant Medical | DX: N95.0 Postmenopausal bleeding (principal) | CPT/HCPCS: 76830; 76856 ==